=== PATIENT | female | born 1985 | race Caucasian/White ===

== ENCOUNTER 2018-09-29 00:29 | Emergency (ER) | payer OTHER ==
[~2018-09-29] VITALS: Ht 157.5 cm; Wt 73.2 kg
[2018-09-29 00:34] VITALS: Ht 157.5 cm; Wt 73.2 kg
[2018-09-29] MEDS ORDERED: ACET500C5 PO (05:11)
[2018-09-29 05:17] VITALS: BP 118/70; PULSE 78; RESP 16
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
== END 2018-09-29 05:18 | disposition home or self-care (01) ==
LOC: FTE 00:29
DX: R55 Syncope and collapse (principal); J45.909 Unspecified asthma, uncomplicated; M54.2 Cervicalgia
CPT/HCPCS: 70450; 72125; 81025; Z7502